=== PATIENT | female | born 1985 | race Caucasian/White ===

== ENCOUNTER 2017-05-20 10:39 | Emergency (ER) | payer BC ==
[~2017-05-20] VITALS: Ht 167.6 cm; Wt 63.5 kg
[~2017-05-20 10:39] MED LIST: ACYCLOVIR 800800 MG PO; FAMCYCLOVIR 50500 M1 PO; HYDROCODON-ACE1 EACH PO; NORCO 5-325 TA1 EACH PO; PERCOCET 5-3251 EACH PO; ZANTAC 150MG T150 MG PO; ZOFRAN 4 MG ORAL4 MG PO
[2017-05-20 11:10] LABS: URINE BILIRUBIN NEGATIVE (Negative); URINE BLOOD NEGATIVE (Negative); URINE COLOR YELLOW; URINE GLUCOSE-RANDOM* NEGATIVE (Negative); URINE KETONES NEGATIVE (Negative); URINE NITRITE NEGATIVE (Negative); URINE PROTEIN (DIPSTICK) NEGATIVE (Negative); URINE SPECIFIC GRAVITY 1.015 (1.003-1.035); URINE UROBILINOGEN 0.2 E.U./dl (0.2-1.0)
[2017-05-20 12:04] LABS: ABSOLUTE NEUTROPHILS 5.7 thou/uL (1.4-8.2); BASOPHILS 0.8 % (0.0-2.0); EOSINOPHILS 2.4 % (0.0-3.0); HEMATOCRIT 39.9 % (37.0-47.0); HEMOGLOBIN 13.6 gm/dL (12.0-15.0); LYMPHOCYTES 15.5 % (24.0-44.0); MCH 32.3 pg (26.0-34.0); MCHC 34.2 g/dL (28.0-37.0); MCV 94.5 fL (80.0-100.0); MONOCYTES 9.9 % (1.0-8.0); PLATELET COUNT 207 thou/uL (150-400); POLYS 71.4 % (36.0-66.0); RBC 4.22 mil/uL (4.20-5.00); RDW 12.3 % (10.5-14.5)
[2017-05-20 12:12] LABS: CALCIUM 9.2 mg/dL (8.5-10.1); CREATININE 0.8 mg/dL (0.6-1.0); MANUAL DIFF NO; POTASSIUM 4.3 mmol/L (3.5-5.1)
[2017-05-20] MEDS ORDERED: NAPROSYN500 MG PO (12:43)
[2017-05-20 12:45] VITALS: BP 117/73
[2017-05-21 22:06] LABS: CHLAMYDIA TRACHOMATIS-PCR Negative (Negative); NEISSERIA GONORRHEA-PCR Negative (Negative)
== END 2017-05-20 12:49 | disposition home or self-care (01) ==
LOC: ER 10:39
PROVIDERS: Nurse Practitioner
DX: R10.2 Pelvic and perineal pain (principal); F17.210 Nicotine dependence, cigarettes, uncomplicated; F10.99 Alcohol use, unspecified with unspecified alcohol-induced disorder; Z98.890 Other specified postprocedural states; Z88.0 Allergy status to penicillin

== ENCOUNTER 2021-03-22 11:23 | Emergency (ER) | payer OTHER ==
[~2021-03-22] VITALS: Ht 167.6 cm; Wt 65.8 kg
[~2021-03-22 11:23] MED LIST changes: +NAPROSYN500 MG PO
[2021-03-22] MEDS ORDERED: CLARITIN10 M3 PO (11:32)
[2021-03-22] MEDS ORDERED: SUPER THERAVIT1 EACH PO (11:33)
[2021-03-22] MEDS ORDERED: BENADRYL25 MG PO (11:33)
[2021-03-22] MEDS ORDERED: PREDNISONE 10 M10 M1 PO (12:25)
[2021-03-22] MEDS ORDERED: HYDROXYZINE HCL25 M2 PO (12:25)
[2021-03-22 12:54] VITALS: BP 124/70
== END 2021-03-22 12:54 | disposition home or self-care (01) ==
LOC: ER 11:23
DX: T78.40XA Allergy, unspecified, initial encounter (principal); M79.7 Fibromyalgia; F17.210 Nicotine dependence, cigarettes, uncomplicated; Z88.0 Allergy status to penicillin; Z90.89 Acquired absence of other organs; X58.XXXA Exposure to other specified factors, initial encounter

== ENCOUNTER 2021-05-22 20:40 | Emergency (ER) | payer OTHER ==
[~2021-05-22] VITALS: Ht 157.5 cm; Wt 54.4 kg
[~2021-05-22 20:40] MED LIST changes: +BENADRYL25 MG PO; +CLARITIN10 M3 PO; +HYDROXYZINE HCL25 M2 PO; +PREDNISONE 10 M10 M1 PO; +SUPER THERAVIT1 EACH PO
[2021-05-22] MEDS ORDERED: MEDROLDOSEPACK PO (22:50)
[2021-05-22] MEDS ORDERED: EPIPEN 2-P0.3 MG/0.3 IM (22:50)
[2021-05-22 23:35] VITALS: BP 127/81
== END 2021-05-22 23:39 | disposition home or self-care (01) ==
LOC: ER 20:40
DX: T78.40XD Allergy, unspecified, subsequent encounter (principal); F17.210 Nicotine dependence, cigarettes, uncomplicated; R07.0 Pain in throat; Z88.0 Allergy status to penicillin; Z90.89 Acquired absence of other organs